=== PATIENT | male | born 1975 | race Caucasian/White ===

== ENCOUNTER 2020-09-12 10:29 | Outpatient (REF) | payer OTHER, SELFPAY ==
[2020-09-16 10:09] LABS: COVID-19 RT-PCR Result NEGATIVE (Negative)
== END 2020-09-12 10:49 ==
LOC: NCHCN 10:29
PROVIDERS: PCP Internal Medicine; Visit Provider Internal Medicine
DX: Z20.828 Contact with and (suspected) exposure to other viral communicable diseases (principal)
CPT/HCPCS: U0003